=== PATIENT | male | born 1980 | race Caucasian/White ===

== ENCOUNTER 2021-12-24 10:47 | Emergency (ER) | payer OTHER, SELFPAY ==
[2021-12-24 11:16] VITALS: BP 132/87; PULSE 76; RESP 16; TEMP 37.1; O2SAT 97; BMI 33.7
[2021-12-24 11:42] VITALS: BP 136/82; PULSE 69; RESP 16; O2SAT 98
--- NOTE | 2021-12-24 11:57 | CRLHL7_ITS ---
For Patients: As a result of the Cures Act, medical imaging exams and procedure reports are released immediately into your electronic medical record. You may view this report before your referring provider. If you have questions, please contact your health care provider. INDICATION: Trauma COMPARISON: none TECHNIQUE: PA chest and right ribs. FINDINGS: The lungs are clear. There is no evidence of pulmonary contusion, pneumothorax or pleural effusion. The heart and pulmonary vessels are of normal size. Oblique detail views of the ribs demonstrate no evidence of fracture or intrinsic bone lesion. There is no evidence of pleural hematoma. IMPRESSION: IMPRESSION:Negative chest and right ribs. Dictated by Ranjit Augustine MD @ 12/24/2021 1:54:34 PM (Electronically Signed)
--- NOTE | 2021-12-24 11:57 | CRLHL7_ITS ---
For Patients: As a result of the Century Cures Act, medical imaging exams and procedure reports are released immediately into your electronic medical record. You may view this report before your referring provider. If you have questions, please contact your health care provider. INDICATION: Patient was baling hay and a 1200 lb bale of hay fall on his right side just skinning, the side of his head and landing on his shoulder, injury, Trauma TECHNIQUE: Shoulder radiograph 3 views right COMPARISON: None FINDINGS: Bone: No acute fractures or aggressive bone lesions are identified. Joint: The glenohumeral joint is unremarkable. The acromioclavicular joint is unremarkable. Soft tissue: Unremarkable. The visualized hemithorax is unremarkable in appearance. No radiopaque foreign bodies are seen. IMPRESSION: 1. No acute osseous injuries or abnormalities are noted. Dictated by: Perez Lind MD @ 12/24/2021 13:48:18 (Electronically Signed)
--- NOTE | 2021-12-24 11:57 | CRLHL7_ITS ---
For Patients: As a result of the Cures Act, medical imaging exams and procedure reports are released immediately into your electronic medical record. You may view this report before your referring provider. If you have questions, please contact your health care provider. INDICATION: Trauma TECHNIQUE: Cervical spine 4 view. COMPARISON: None FINDINGS: Bones: Straightening of the normal lordosis, possibly due to muscle spasm. No fractures or significant bone lesions. Joints: Disc space narrowing and spurring C5-6. Facet joints are normal. Soft tissues: Unremarkable. IMPRESSION: No cervical spine fracture. Dictated by Ranjit Augustine MD @ 12/24/2021 1:51:39 PM (Electronically Signed)
--- NOTE | 2021-12-24 11:57 | CRLHL7_ITS ---
For Patients: As a result of the Cures Act, medical imaging exams and procedure reports are released immediately into your electronic medical record. You may view this report before your referring provider. If you have questions, please contact your health care provider. INDICATION: Trauma COMPARISON: none TECHNIQUE: Two views right clavicle. FINDINGS: No fracture or malalignment. Incidental degenerative cystic changes in the humeral head. Mild degenerative arthrosis at the AC joint. IMPRESSION: No sign of acute injury. Dictated by Ranjit Augustine MD @ 12/24/2021 1:53:28 PM (Electronically Signed)
[2021-12-24 12:00] VITALS: BP 118/89; PULSE 73; RESP 16; O2SAT 99
--- NOTE | 2021-12-24 12:09 | ED_ITS ---
HPI - General Adult General Chief complaint: Neck Injury/Pain Stated complaint: Pain on right side from from neck to ribs Time Seen by Provider: 12/24/21 11:40 Source: patient Mode of arrival: ambulatory Limitations: no limitations History of Present Illness HPI narrative: 41-year-old male coming in today complaining of neck, shoulder, chest wall pain. Approximately 24 hours ago patient was baling hay and a 1200 lb bale of hay fell on his right side just skinning the side of his head and landing on his shoulder. He was extremely sore shortly after it happened, this morning the soreness became significantly worse. It did not hit his head. He denies a headache. He denies any confusion or fogginess. He complains of right-sided neck pain, right shoulder pain, right clavicular pain, and pain on the right lateral chest wall. He is not short of breath. He has no significant pain with deep inspiration just a discomfort of the chest wall. He is not coughing. He denies anterior chest pain. He states that the bale also skinned his ear and it was bleeding yesterday but that has since resolved. Given the mechanism of injury, TTA was called. Related Data Home Medications Medication Instructions Recorded Confirmed No Known Home Medications 12/24/21 12/24/21 Allergies Allergy/AdvReac Type Severity Reaction Status Date / Time No Known Drug Allergies Allergy Verified 12/24/21 11:22 Review of Systems Status of ROS: Reports: 10 or more systems reviewed and unremarkable except as noted in History and below [facility] Social History Smoking Status: Former smoker Do you use any of these nicotine containing products: Vaping Products Second hand tobacco smoke exposure: No How often do you have a drink containing alcohol: monthly or less AUDIT-C Alcohol total score: 1 Non-prescribed substance use: denies use service: No Exam Narrative: Exam Narrative: Well-nourished well-developed patient in no acute distress. Alert and oriented. Answers questions appropriately. Mood and affect are appropriate. Thoughts are goal oriented and rational. No tangential or magical thinking noted. Patient speaks in full sentences without needing to catch their breath. Breathing and speaking easily. GCS is 15. HEENT: Normocephalic atraumatic. Pupils are equally round reactive to light. Extraocular muscles are intact. Conjunctivae are moist without any icterus noted. Moist mucous membranes. Posterior pharynx is normal. Neck is soft without any lymphadenopathy or thyromegaly. No masses are appreciated. The ba ck of the right Stone has a small abrasion which appears to be healing appropriately. Cardiovascular: Heart is regular rate and rhythm S1 and S2 are present without any murmurs. Lungs: Clear to auscultation bilaterally no wheezes rhonchi or rales are appreciated. Patient takes deep breaths without too much discomfort. Abdomen: Soft and nontender nondistended with normal bowel sounds. Extremities: Bilateral lower extremities are without edema. Patient has tenderness to palpation over the right closed distal clavicle and over the AC joint. He has tenderness over the anterior shoulder area. There is no significant swelling noted. There is no ecchymosis noted. He also has tenderness to palpation over the lateral chest wall, again no skin changes observed. 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 He has good range of motion at the shoulder but it causes him significant discomfort. Skin: Well perfused without any obvious rashes. Back: Normal appearance. He has no tenderness over the cervical, thoracic or lumbar spine. He does have tenderness with movement at the neck especially with side way bending to the left and side way rotation to the left-this causes pain on the right side. Strength is 5/5 of the upper and lower extremities. Reflexes are 2+ and symmetric at the knees. Romberg sign is negative. Cranial nerves 3-12 are normal. There is no nystagmus either horizontally or vertically. Gait is normal. Const: Vital Signs, click to edit/add: Vital Signs - 24 hr 12/24/21 11:16 12/24/21 11:42 12/24/21 12:00 Temperature 98.7 F Pulse Rate [Pulse Oximeter] 76 69 73 Respiratory Rate 16 16 16 Blood Pressure [Le ft Upper Arm] 132/87 136/82 118/89 Pulse Oximetry 97 98 99 Oxygen Delivery Me thod Room Air Room Air Room Air Course Course Hospital Course: We did go ahead and x-ray the cervical spine, clavicle, shoulder and ribs-all were without bony abnormalities. Toradol was given for achiness. Vital Signs Vital signs: Initial Vital Signs Temperature 98.7 F 12/24/21 11:16 Temperature Source Temporal Artery Scan 12/24/21 11:16 Pulse Rate 76 12/24/21 11:16 Pulse Rhythm 12/24/21 11:16 Pulse Strength 3+ Normal 12/24/21 11:16 Respiratory Rate 16 12/24/21 11:16 Blood Pressure 132/87 12/24/21 11:16 Blood Pressure Mean 102 12/24/21 11:16 Blood Pressure Position Sitting 12/24/21 11:16 Pulse Oximetry 97 12/24/21 11:16 Oxygen Delivery Method 12/24/21 11:16 Vital Signs Temperature 98.7 F 12/24/21 11:16 Pulse Rate 76 12/24/21 11:16 Respiratory Rate 16 12/24/21 11:16 Blood Pressure 132/87 12/24/21 11:16 Pulse Oximetry 97 12/24/21 11:16 Oxygen Delivery Method 12/24/21 11:16 Temperature 98.7 F 12/24/21 11:16 Pulse Rate 73 12/24/21 12:00 Respiratory Rate 16 12/24/21 12:00 Blood Pressure 118/89 12/24/21 12:00 Pulse Oximetry 99 12/24/21 12:00 Oxygen Delivery Method 12/24/21 12:00 Medical Decision Making MDM Narrative Medical decision making narrative: 41-year-old male with contusion to the upper body on the right side with a heavy object. We discussed soreness in symptomatic treatment for all the soreness he is experiencing. We discussed a re-evaluation in a couple days with his primary care provider. We discussed reasons to return to the ER. Patient was agreeable had no other questions. Imaging Data Cervical spine x-ray: Attestation: I have reviewed the pertinent imaging results. Radiologist's impression: Cervical spine 4 view. COMPARISON: None FINDINGS: Bones: Straightening of the normal lordosis, possibly due to muscle spasm. No fractures or significant bone lesions. Joints: Disc space narrowing and spurring C5-6. Facet joints are normal. Soft tissues: Unremarkable. IMPRESSION: No cervical spine fracture. X-ray shoulder: Attestation: I have reviewed the pertinent imaging results. Radiologist's impression: TECHNIQUE: Shoulder radiograph 3 views right COMPARISON: None FINDINGS: Bone: No acute fractures or aggressive bone lesions are identified. Joint: The glenohumeral joint is unremarkable. The acromioclavicular joint is unremarkable. Soft tissue: Unremarkable. The visualized hemithorax is unremarkable in appearance. No radiopaque foreign bodies are seen. IMPRESSION: 1. No acute osseous injuries or abnormalities are noted. X-ray clavicle: Attestation: I have reviewed the pertinent imaging results. Radiologist's impression: Two views right clavicle. FINDINGS: No fracture or malalignment. Incidental degenerative cystic changes in the humeral head. Mild degenerative arthrosis at the AC joint. IMPRESSION: No sign of acute injury. X-ray right ribs: Attestation: I have reviewed the pertinent imaging results. Radiologist's impression: PA chest and right ribs. FINDINGS: The lungs are clear. There is no evidence of pulmonary contusion, pneumothorax or pleural effusion. The heart and pulmonary vessels are of normal size. Oblique detail views of the ribs demonstrate no evidence of fracture or intrinsic bone lesion. There is no evidence of pleural hematoma. IMPRESSION: IMPRESSION:Negative chest and right ribs. Discharge Plan Discharge Clinical Impression: Contusion Patient Disposition: Home, Self-Care Condition: Stable Additional Instructions: Okay to take Tylenol up to 3 g per day, and/or ibuprofen up to 800 mg every 8 hours as needed for achiness. Recommend using a heating pad to sore areas as needed, do not apply heat directly to skin. Recommend daily gentle stretching and movement. Recommend following up with your primary care provider at the end of this week or early next week for repeat evaluation. Return to the ER if you feel that certain things are getting worse instead of better. Prescriptions: No Action No Known Home Medications Follow Up/Referrals: Provider,Not a Local [Primary Care Provider] - Stand Alone Forms: [employer] Info Instructions
[2021-12-24 13:00] VITALS: BP 120/80; PULSE 67; RESP 16; O2SAT 96
[2021-12-24 13:30] VITALS: BP 118/76; PULSE 67; RESP 16; O2SAT 99
[2021-12-24] MEDS: KETOROLAC 60 MG/2 ML inj IM (14:13)
== END 2021-12-24 14:25 | disposition home or self-care (01) ==
PROVIDERS: Emergency Provider Family Medicine
DX: S10.93XA Contusion of unspecified part of neck, initial encounter (principal); S20.211A Contusion of right front wall of thorax, initial encounter; F17.290 Nicotine dependence, other tobacco product, uncomplicated; W20.8XXA Other cause of strike by thrown, projected or falling object, initial encounter; Y92.79 Other farm location as the place of occurrence of the external cause
CPT/HCPCS: 71101; 72040; 73000; 73030; 96374; 99284; 99285; 99291; J1885

== ENCOUNTER 2024-11-22 08:19 | Emergency (ER) | payer BC, SELFPAY ==
--- OUTSIDE RECORDS SUMMARY | 2024-11-22 08:21 | XMS_ITS | Clinical Summary ---
Author Organization [facility] Address [address] [place] [id number] Care Team Providers Care Rn Nursery Name Role Phone Pcp, No Primary Care Provider Unavailabl e Allergies No known active allergies Medications cyclobenzaprine (FLEXERIL) 10 mg tabletIndication s:Strain of thoracic region One tablet by mouth every 8 hours as needed for muscle spasm 10 tablet 0 11/13/2010 Active Active Problems No known active problems Social History Tobacco Use Types Packs/Day Years Used Date Smoking Tobacco: Every Day Cigarettes Smokeless Tobacco: Never Alcohol Use Standard Drinks/Week Comments Not Asked 0 (1 standard drink = 0.6 oz pur e alcohol) Sex and Gender Information Value Date Recorded Sex Assigned at Not on file 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 Gender Identity Not on file Sexual Orientation Not on file Obstetrics History Last Filed Vital Signs Vital Sign Reading Time Taken Comments Blood Pressure 122/82 11/13/2010 4:31 PM CDT Pulse 84 11/13/2010 4:31 PM CDT Temperature 37.3 C (99.1 F) 10/01/2010 9:02 AM CDT Respiratory Rate - - Oxygen Saturation 98% 10/01/2010 9:02 AM CDT Inhaled Oxygen Concentration - - Weight 96.7 kg (213 lb 3.2 oz) 11/13/2010 4:31 P M CDT Height - - Body Mass Index - - Plan of Treatment Health Maintenance Due Date Last Done Comments Tetanus booster 1993 Depression screening for age 12+ 1994 HIV for age 15-65 1997 BMI (ht and wt on same day) for age 18+ 2000 Hepatitis C screening for ag e 18-79 2000 Hepatitis B series for 19+ ( 1 of 3 - 19+ 3-dose series) 2001 HPV series for age 9-45 (1 - 3-dose SCDM series) 2009 Lipids for age 35-44 2017 COVID-19 vaccine series (1 - 2023- season) 2024 Influenza Vaccine (#1) 2024 RSV vaccine for adults or (1 - 1-dose 75+ series) 2057 Pneumococcal series for age 6-49 Aged Out No longer eligible based on patient's age to complete this topic Insurance [facility] Care Teams Rn Nursery Relationship Specialty Start Date End Date Pcp, No . PCP - General 09/30/10
[2024-11-22 08:23] VITALS: BP 137/91; PULSE 78; RESP 18; TEMP 36.7; BMI 36.6
[2024-11-22 08:39] LABS: Appearance Urine Clear (Clear)
--- NOTE | 2024-11-22 09:02 | CRLHL7_ITS ---
For Patients: As a result of the Century Cures Act, medical imaging exams and procedure reports are released immediately into your electronic medical record. You may view this report before your referring provider. If you have questions, please contact your health care provider. INDICATION: Left flank pain COMPARISON: August 08, 2019 TECHNIQUE: CT examination of the abdomen and pelvis was performed without intravenous contrast. Thin section axial images were obtained from the lung bases through the pubic symphysis. Oral contrast was not administered. Please note that all CT scans at this facility use dose modulation, iterative reconstruction, and/or weight-based dosing when appropriate to reduce radiation dose to as low as reasonably achievable. FINDINGS: LUNG BASES: The lung bases as visualized appear normal.The heart size is normal at the lung bases. LIVER/BILIARY SYSTEM:The liver is normal in size and configuration given the lack of intravenous contrast. There is no visible focal mass and there is no intra- or extra hepatic biliary ductal dilatation.Hepatic steatosis. Unremarkable appearing gallbladder ADRENALS: Normal non-contrast appearance KIDNEYS, URETERS and BLADDER:Normal-sized kidneys. Very small intrarenal calculi bilaterally, [id number]-right. Mild left hydronephrosis and left hydroureter. This is due to a 2 millimeter calculus at the inner orifice of the left ureterovesical junction. The bladder appears normal SPLEEN:Normal non-contrast appearance. PANCREAS: Normal non-contrast appearance. RETROPERITONEUM and MESENTERY: There is no mass, adenopathy or aortic aneurysm. GASTROINTESTINAL SYSTEM: There is no evidence of diverticulitis, colitis, mechanical obstruction, or appendicitis. The small bowel as visualized appears normal. PELVIS: No mass, adenopathy or free fluid. OSSEOUS STRUCTURES and ABDOMINAL WALL: There is an age-appropriate appearance of the osseous structures.No significant abdominal wall defect. OTHER: No free fluid or free air. IMPRESSION: 1. Very small intrarenal calculi bilaterally, [id number]-right. Mild left hydronephrosis and left hydroureter. This is due to a 2 millimeter calcified calculus at the inner orifice of the left ureterovesical junction. 2. Hepatic steatosis. Please note that all CT scans at this facility use dose modulation, iterative reconstruction, and/or weight-based dosing when appropriate to reduce radiation dose to as low as reasonably achievable. Dictated by Harvey Lake MD @ 11/22/2024 9:37:42 AM (Electronically Signed)
--- NOTE | 2024-11-22 09:08 | ED_ITS ---
HPI - General Adult General Chief complaint: Flank Pain Stated complaint: Kidney stone Time Seen by Provider: 11/22/24 08:39 History of Present Illness HPI narrative: This 44-year-old male comes in reporting left flank pain that began late last evening. He states that he does have a history of kidney stone a few years ago. These symptoms seemed similar. He did have some nausea and vomiting. His pain was rather intense last evening. He states that he was able to get to sleep from 3:00 a.m. to 6:00 a.m.. His pain returned this morning but now has eased up to 2/10 in severity. Related Data Previous Rx's ?Medication ?Instructions ?Recorded hydrocodone 5 mg-acetaminophen 325 1 tab PO Q4-6H PRN pain #15 tabs 11/22/24 mg tablet ketorolac 10 mg tablet 10 mg PO TID 5 days #15 tabs 11/22/24 ondansetron HCl 4 mg tablet 4 mg PO Q6H #20 tabs 11/22 Allergies Allergy/AdvReac Type Severity Reaction Status Date / Time No Known Drug Allergies Allergy Verified 11/22/24 08:28 Review of Systems Status of ROS: Reports: 10 or more systems reviewed and unremarkable except as noted in History and below Narrative: Constitutional: No fevers, no weight gain or loss. Eyes: No discharge. No vision changes. HENT: No congestion, no sore throat, no ear pain. Cardiovascular: No chest pain, no palpitations. Respiratory: No shortness of breath, no wheezes, no cough. Gastrointestinal: No diarrhea. Left-sided flank pain radiating down into his groin. Genitourinary: No dysuria, no hematuria. Musculoskeletal: Normal range of motion. Skin: No rashes, no pruritis. Neurological: No dizziness, weakness, sensory change, speech change. Endo/Heme/Allergies: No bruising or bleeding. No polydipsia. Pysch: no suicidality, no anxiety, no insomnia. All other systems reviewed and are negative. PFSH PFS Social History Smoking Status: Former smoker Do you use any of these nicotine containing products: Vaping Products Second hand tobacco smoke exposure: No How often do you have a drink containing alcohol: monthly or less AUDIT-C Alcohol total score: 1 Non-prescribed substance use: denies use service: No Exam Narrative: Exam Narrative: Constitutional: Well-developed, well-nourished, no acute distress. HEENT: Normocephalic, atraumatic. Neck: Normal range of motion. Nontender. Supple. Heart: Intact distal pulses. Lungs: No chest discomfort. No wheezes, rhonchi, or rales. Abdomen: Nontender. Mild left flank pain currently. Back: Normal range of motion. Extremities: Normal range of motion. No injury. Skin: Intact. No rash. Warm. No erythema or pallor. Neurologic: No altered sensation. No weakness. Alert and oriented. Psychiatric: No suicidality. No anxiety or depression. No insomnia. Nursing notes and vitals signs are reviewed. Const: Vital Signs, click to edit/add: Vital Signs - 24 hr 11/22/24 08:23 Temperature 98.0 F Pulse Rate [Pulse Oximeter] 78 Respiratory Rate 18 Blood Pressure [Ri ght Upper Arm] 137/91 H Oxygen Delivery Me thod Room Air Course Vital Signs Vital signs: Initial Vital Signs Temperature 98.0 F 11/22/24 08:23 Temperature Source Temporal Artery Scan 11/22/24 08:23 Pulse Rate 78 11/22/24 08:23 Respiratory Rate 18 11/22/24 08:23 Blood Pressure 137/91 H 11/22/24 08:23 Blood Pressure Mean 106 H 11/22/24 08:23 Blood Pressure Position Sitting 11/22/24 08:23 Oxygen Delivery Method Room Air 11/22/24 08:23 Vital Signs Temperature 98.0 F 11/22/24 08:23 Pulse Rate 78 11/22/24 08:23 Respiratory Rate 18 11/22/24 08:23 Blood Pressure 137/91 H 11/22/24 08:23 Oxygen Delivery Method Room Air 11/22/24 08:23 Temperature 98.0 F 11/22/24 08:23 Pulse Rate 78 11/22/24 08:23 Respiratory Rate 18 11/22/24 08:23 Blood Pressure 137/91 H 11/22/24 08:23 Oxygen Delivery Method Room Air 11/22/24 08:23 Medications Administered Medications: Discontinued Medications Generic Name Dose Route Start Last Admin Trade Name Freq PRN Reason Stop Dose Admin Ketorolac Tromethamine 10 mg 11/22/24 09:03 11/22/24 09:15 Ketorolac 10 Mg Tablet PO 11/22/24 09:04 10 mg ONCE ONE Administration Medical Decision Making MDM Narrative Medical decision making narrative: This patient comes in with symptoms that are very typical of a kidney stone. His urinalysis does show microscopic hematuria but no sign of infection. CT scan does show small stone in the left ureterovesical junction and other small stones up in both kidneys. I relayed these information results to the patient. He did receive an oral dose of Toradol 10 mg. He is in no acute distress currently. He should be able to pass this stone without difficulty. I did provide prescriptions for Toradol, [place], and Zofran. Lab Data Labs: Lab Results 11/22/24 Range/Units 08:29 Urine Color Yellow (Yellow) Urine Appearance Clear (Clear) Urine pH 7.0 (5.0-8.5) Ur Specific [place] 1.020 (1.000-1.030) Urine Protein Negative (Negative) Urine Glucose (UA) Negative (Negative) Urine Ketones Negative (Negative) Urine Blood 2+ A (Negative) Urine Nitrite Negative (Negative) Urine Bilirubin Negative (Negative) Urine Urobilinogen 2.0 A (0.2-1.0) Ur Leukocyte Esterase Negative (Negative) Urine RBC 5-10 A (0-2) Urine WBC 0-2 (0-5) Ur Squamous Epith Cells Few (None-Few) Amorphous Sediment Few A (None) Urine Bacteria None (None) Imaging Data CT scan - abdomen: Radiologist's impression: 1. Very small intrarenal calculi bilaterally, [id number]-right. Mild left hydronephrosis and left hydroureter. This is due to a 2 millimeter calcified calculus at the inner orifice of the left ureterovesical junction. 2. Hepatic steatosis. Discharge Plan Discharge Clinical Impression: Calculus, ureteral Patient Disposition: Home, Self-Care Condition: Improved Additional Instructions: Take medication as needed and indicated. Follow up with MD return if symptoms are persistent or worsening. Prescriptions: New hydrocodone-acetaminophen 5-325 mg tablet 1 tab PO Q4-6H PRN (Reason: pain) Qty: 15 0RF ondansetron HCl 4 mg tablet 4 mg PO Q6H Qty: 20 0RF ketorolac 10 mg tablet 10 mg PO TID 5 Days Qty: 15 0RF Follow Up/Referrals: Provider,Not a Local [Primary Care Provider, Family Practice] Stand Alone Forms: [facility] Info Instructions
[2024-11-22] MEDS: KETOROLAC 10 MG TABLET PO (09:15)
== END 2024-11-22 10:20 | disposition home or self-care (01) ==
PROVIDERS: Emergency Provider Emergency Medicine Emergency Medical Services
DX: N20.1 Calculus of ureter (principal)
CPT/HCPCS: 74176; 81001; 81003; 99284; A9270